=== PATIENT | female | born 1945 | race Two or more races ===

== ENCOUNTER → 2019-09-11 | Outpatient (CLI) | payer OTHER | END | disposition home or self-care (01) | LOC: RAD 11:52 | DX: M12.871 Other specific arthropathies, not elsewhere classified, right ankle and foot (principal); M12.872 Other specific arthropathies, not elsewhere classified, left ankle and foot ==

== ENCOUNTER 2019-10-28 13:31 | Outpatient (CLI) | payer OTHER | END 2019-10-28 13:36 | disposition home or self-care (01) | LOC: LAB 13:31 | DX: D64.0 Hereditary sideroblastic anemia (principal); J11.1 Influenza due to unidentified influenza virus with other respiratory manifestations ==